=== PATIENT | female | born 1930 | race Caucasian/White ===

== ENCOUNTER 2019-06-25 16:12 | Inpatient (IN) | payer MEDICARE, OTHER ==
[~2019-06-25] VITALS: Ht 162.6 cm; Wt 87.7 kg
[~2019-06-25 16:12] MED LIST: COL100C PO; DILT360C18 PO; HYDR-3964 PO; SYN0.088T PO
[2019-06-25] MEDS ORDERED: fentaNYL/PF 50MCG/1 ML 2ML syringe IV ONE ×4 (16:35→21:00)
[2019-06-25] MEDS ORDERED: oxyCODONE IR 5mg (immed. release) tablet PO ONE (17:05)
--- NOTE | 2019-06-25 17:07 | NUR ---
REFUSED IV FOR MED, ADVISED. NEW PO ORDERS RECEIVED.
[2019-06-25] MEDS ORDERED: LEVO100T PO (19:49)
[2019-06-25] MEDS ORDERED: LISI-600 PO (19:49)
[2019-06-25] MEDS ORDERED: CYAN-51 PO (19:51)
[2019-06-25] MEDS ORDERED: ACET-2971 PO (19:54)
[2019-06-25] MEDS ORDERED: oxyCODONE/APAP 10/325mg tablet PO ONE (20:55)
[2019-06-25] MEDS ORDERED: magnesium 4gm in 100ml NS 100 ML IV PRN (21:30)
[2019-06-25] MEDS ORDERED: potassium Cl 20 mEq SR tablet PO PRN ×2 (21:30)
[2019-06-25] MEDS ORDERED: magnesium Cl slow-release 64mg tablet PO PRN (21:30)
[2019-06-25] MEDS ORDERED: morphine 2 MG/ML inj. syringe IV PRN ×2 (21:30)
[2019-06-25] MEDS ORDERED: potassium CL 10mEq/100ml bag 100 ML IV PRN ×2 (21:30)
[2019-06-25] MEDS ORDERED: magnesium 2GM in 50ml NS 50 ML IV PRN (21:30)
[2019-06-25] MEDS ORDERED: acetaminophen 325mg tablet PO PRN (21:30)
[2019-06-25] MEDS: normal saline 1000ml 1,000 ML IV SCH (22:53)
[2019-06-25] MEDS: ondansetron/PF 4mg/2ml inj IV PRN (23:44)
[2019-06-25 23:55] VITALS: BP 199/105
[2019-06-26 00:22] VITALS: BP 144/75
[2019-06-26] MEDS: levoTHYROXINE 100mcg tablet PO SCH ×2 (00:25→07:22)
[2019-06-26] MEDS: diltiazem CD 180mg cap (once-daily) PO SCH ×2 (00:45→21:13)
[2019-06-26] MEDS ORDERED: acetaminophen 325mg tablet PO PRN (00:45)
[2019-06-26] MEDS: lisinopril 10 MG tablet PO SCH ×2 (00:58→21:12)
[2019-06-26] MEDS: HYDROcodone/acetaminophen 5mg/325mg tablet PO PRN ×3 (00:59→10:47)
[2019-06-26 06:00] VITALS: BP 115/55
--- NOTE | 2019-06-26 06:30 | NUR ---
Problems reprioritized. Patient report given, questions answered & plan of care reviewed with POONAM Angela.
--- NOTE | 2019-06-26 06:35 | NUR ---
Patient in room [facility]TH[facility] 4015. I have received report from Hollie LEVIN and had the opportunity to ask questions and assume patient care.
[2019-06-26 06:39] LABS: BASOPHILS % (AUTO) 0.3 % (0-1); EOSINOPHILS % (AUTO) 0.1 % (0-6); HEMATOCRIT 31.9 % (35.0-45.0); HEMOGLOBIN 10.9 g/dl (12.0-16.0); LYMPHOCYTES # (AUTO) 1.2 X10'3 (1.1-4.8); LYMPHOCYTES % (AUTO) 12.8 % (21-51); MEAN CORPUSCULAR HEMOGLOBIN 30.1 PG (27.0-31.0); MEAN CORPUSCULAR HGB CONC 34.1 g/dL (33.0-36.5); MEAN CORPUSCULAR VOLUME 88.3 FL (78-98); MEAN PLATELET VOLUME 7.5 FL (7.4-10.4); MONOCYTES # (AUTO) 1.2 X10'3 (0-0.9); MONOCYTES % (AUTO) 12.6 % (2-12); NEUTROPHILS # (AUTO) 6.9 X10'3 (1.8-7.7); NEUTROPHILS % (AUTO) 74.2 % (42-75); PLATELET COUNT 263 X10'3 (140-440); RED BLOOD COUNT 3.62 X10'6 (4.20-5.60); RED CELL DISTRIBUTION WIDTH 14.6 % (11.5-14.5); WHITE BLOOD COUNT 9.4 X10'3 (4.5-11.0)
[2019-06-26 06:49] LABS: ALBUMIN 3.2 G/DL (3.4-5.0); ANION GAP 8 (8-16); BLOOD UREA NITROGEN 15 MG/DL (7-18); BUN/CREATININE RATIO 16.5 (6.6-38.0); CALCIUM 8.6 MG/DL (8.5-10.1); CHLORIDE 103 MMOL/L (99-107); CREATININE 0.91 MG/DL (0.40-0.90); GLUCOSE 121 MG/DL (70-104); POTASSIUM 3.9 MMOL/L (3.5-5.1); SODIUM 138 MMOL/L (135-145); TOTAL CARBON DIOXIDE 26.9 MMOL/L (24-32); eGFR 58 ML/MIN
[2019-06-26] MEDS: K and/or MAG REPLACEMENT MC SCH ×2 (07:12→20:00)
--- NOTE | 2019-06-26 08:53 | NUR ---
using julia kadie. Addendum: 06/26/19 at 0857 by Julio César Burgos RN Amended: Links added.
[2019-06-26 10:00] VITALS: BP 122/59
[2019-06-26 10:10] LABS: PARTIAL THROMBOPLASTIN TIME 25 SECONDS (22-32)
--- NOTE | 2019-06-26 10:57 | NUR ---
Julio César [id number] Re: Alecia Horton Can Pt have [place] for pain?
[2019-06-26] MEDS: HYDROcodone/acetaminophen 10/325mg tab PO PRN ×2 (14:35→21:12)
--- NOTE | 2019-06-26 17:01 | NUR ---
Julio César [id number] Re: Alecia Horton Pt c/o 04/17 pain in right shoulder. Has been on [place] 10. Can we get Ultram for break through pain?
[2019-06-26 18:00] VITALS: BP 156/66
--- NOTE | 2019-06-26 18:13 | NUR ---
Problems reprioritized. Patient report given, questions answered & plan of care reviewed with Mae LEVIN.
[2019-06-26] MEDS: traMADol 50MG tablet PO PRN (19:17)
[2019-06-26] MEDS: ondansetron/PF 4mg/2ml inj IV PRN (19:17)
[2019-06-26 21:01] VITALS: BP 133/72
[2019-06-26] MEDS: cyanocobalamin 500mcg tablet PO SCH (21:12)
[2019-06-26 22:00] VITALS: BP 133/72
[2019-06-27] VITALS (21 sets, daily range): BP systolic 104–147; BP diastolic 45–82
[2019-06-27] MEDS: normal saline 1000ml 1,000 ML IV SCH (00:14)
--- NOTE | 2019-06-27 00:30 | NUR ---
Patient pure wick showed only less than 100ml and dry flow dry. Patient denies any pain or discomfort to her abd. Bladder scan patient showed >1000ml.
--- NOTE | 2019-06-27 00:40 | NUR ---
Dr. Perez notified of patient's urine retention. Orders to straight cath now. and x1 more for urine >400ml. If patient continues to retain after straight cath x2. Then to place FC. @0100. Patient straight cath under sterile procedure. Patient tolerated well. Return 1000ml clear yellow urine.
--- NOTE | 2019-06-27 05:28 | NUR ---
Bladder scan this morning. Patient has 160ml.
[2019-06-27] MEDS: traMADol 50MG tablet PO PRN (05:30)
--- NOTE | 2019-06-27 06:05 | NUR ---
Patient in room [facility]TH[facility] 4015. I have received report from Mae LEVIN and had the opportunity to ask questions and assume patient care.
--- NOTE | 2019-06-27 06:31 | NUR ---
Problems reprioritized. Patient report given, questions answered & plan of care reviewed with Marita LEVIN.
[2019-06-27 06:37] LABS: PARTIAL THROMBOPLASTIN TIME 26 SECONDS (22-32)
[2019-06-27 06:38] LABS: BASOPHILS # (AUTO) 0.1 X10'3 (0-0.2); BASOPHILS % (AUTO) 0.8 % (0-1); EOSINOPHILS # (AUTO) 0.3 X10'3 (0-0.9); EOSINOPHILS % (AUTO) 3.4 % (0-6); HEMATOCRIT 30.1 % (35.0-45.0); HEMOGLOBIN 10.5 g/dl (12.0-16.0); LYMPHOCYTES # (AUTO) 1.3 X10'3 (1.1-4.8); LYMPHOCYTES % (AUTO) 16.1 % (21-51); MEAN CORPUSCULAR HEMOGLOBIN 30.5 PG (27.0-31.0); MEAN CORPUSCULAR HGB CONC 34.9 g/dL (33.0-36.5); MEAN CORPUSCULAR VOLUME 87.3 FL (78-98); MEAN PLATELET VOLUME 7.7 FL (7.4-10.4); MONOCYTES # (AUTO) 1.2 X10'3 (0-0.9); MONOCYTES % (AUTO) 15.1 % (2-12); NEUTROPHILS # (AUTO) 5.1 X10'3 (1.8-7.7); NEUTROPHILS % (AUTO) 64.6 % (42-75); PLATELET COUNT 228 X10'3 (140-440); RED BLOOD COUNT 3.45 X10'6 (4.20-5.60); RED CELL DISTRIBUTION WIDTH 14.8 % (11.5-14.5); WHITE BLOOD COUNT 7.9 X10'3 (4.5-11.0)
[2019-06-27 06:42] LABS: ALBUMIN 2.9 G/DL (3.4-5.0); ANION GAP 7 (8-16); BLOOD UREA NITROGEN 15 MG/DL (7-18); BUN/CREATININE RATIO 16.9 (6.6-38.0); CALCIUM 8.4 MG/DL (8.5-10.1); CHLORIDE 102 MMOL/L (99-107); CREATININE 0.89 MG/DL (0.40-0.90); GLUCOSE 105 MG/DL (70-104); POTASSIUM 3.9 MMOL/L (3.5-5.1); SODIUM 137 MMOL/L (135-145); TOTAL CARBON DIOXIDE 28.5 MMOL/L (24-32); eGFR 60 ML/MIN
[2019-06-27] MEDS: K and/or MAG REPLACEMENT MC SCH ×2 (08:00→20:00)
[2019-06-27] MEDS: levoTHYROXINE 100mcg tablet PO SCH (10:31)
[2019-06-27] MEDS: HYDROcodone/acetaminophen 10/325mg tab PO PRN (10:32)
[2019-06-27] MEDS ORDERED: fentaNYL/PF 50MCG/1 ML 2ML syringe ONE (11:06)
[2019-06-27] MEDS ORDERED: midazolam 2 mg/2 ml injection ONE (11:06)
[2019-06-27] MEDS ORDERED: LIDOcaine 2% (20mg/ml) 5ml vial ONE (11:08)
[2019-06-27] MEDS ORDERED: propofol inj 20 ML IV ONE (11:08)
[2019-06-27] MEDS ORDERED: dexamethasone sod phosphate 4mg/ml inj. ONE (11:09)
[2019-06-27] MEDS ORDERED: ROPIVAcaine 0.5% (5mg/ml) 30ml vial ONE ×2 (11:09→12:28)
[2019-06-27] MEDS ORDERED: sevoflurane 250ml liquid IH ONE (11:10)
[2019-06-27] MEDS ORDERED: phenylephrine 10mg/ml inj. ONE (11:10)
[2019-06-27] MEDS ORDERED: ondansetron/PF 4mg/2ml inj ONE (11:52)
[2019-06-27] MEDS ORDERED: ringers solution, lacted 1,000 ML IV SCH (12:16)
[2019-06-27] MEDS ORDERED: hydrALAZINE 20mg/ml inj. IV PRN (12:20)
[2019-06-27] MEDS ORDERED: labetalol 20mg/4ml (5mg/ml) syringe IV PRN (12:20)
[2019-06-27] MEDS ORDERED: morphine 4 MG/ML inj SYRINge IV PRN ×2 (12:20)
[2019-06-27] MEDS ORDERED: ondansetron/PF 4mg/2ml inj IV PRN (12:20)
[2019-06-27] MEDS ORDERED: fentaNYL/PF 50MCG/1 ML 2ML syringe IV PRN ×2 (12:20)
[2019-06-27] MEDS ORDERED: labetalol 20mg/4ml (5mg/ml) syringe IV ONE (13:14)
[2019-06-27] MEDS ORDERED: potassium cl 20mEq in 1/2 NS 1,000 ML IV SCH (13:27)
--- NOTE | 2019-06-27 13:28 | NUR ---
Received from OR via BED, accompanied by Anesthesiologist DR PALACIOS and report given by Anesthesiologist. PT DROWSY, DENIES PAIN, RIGHT SHOULDER W/DRSG, WRAP, ICE PACK, SHOULDER SLING, CDI. Addendum: 06/27/19 at 1403 by Amy Kee RN Amended: Links added.
[2019-06-27] MEDS: ROPIVAcaine 0.2%/PF PUMP/bolus 550 ML INTERSCALE SCH (14:22)
--- NOTE | 2019-06-27 14:48 | NUR ---
PT INCONTINENT OF URINE AND SMALL AMT OF BROWN STOOL, CLEANED, SKIN CARE PROVIDED, LINEN CHANGE. Report called to receiving nurse. Transferred via BED, UPPER DENTURES PLACED IN PTS MOUTH, NO OTHER Belongings. RECEIVING RN AT BEDSIDE TO RECEIVE PT, BLL, CALL LIGHT GIVEN, SIDE RAILS UP X 2. Special Issues communicated to receiving nurse. YES. Addendum: 06/27/19 at 1509 by Amy Kee RN Amended: Links added.
[2019-06-27] MEDS ORDERED: CLINDAMYCIN/D5W 900mg/50ml 50 ML IV ONE (15:00)
[2019-06-27] MEDS: clindamycin 600mg/D5W 50ml 50 ML IV SCH ×2 (16:44→20:21)
--- NOTE | 2019-06-27 17:04 | NUR ---
Bladder scanned patient: 225ml
--- NOTE | 2019-06-27 18:44 | NUR ---
Patient in room [facility]TH[facility] 4015. I have received report from Marita LEVIN and had the opportunity to ask questions and assume patient care.
[2019-06-27] MEDS ORDERED: VANCOMYCIN 1gm/H2O 200ml PB 200 ML IV SCH (20:00)
[2019-06-27] MEDS: cyanocobalamin 500mcg tablet PO SCH (20:20)
[2019-06-27] MEDS: lisinopril 10 MG tablet PO SCH (20:20)
[2019-06-27] MEDS: diltiazem CD 180mg cap (once-daily) PO SCH (20:21)
[2019-06-28] MEDS: ROPIVAcaine 0.2% (10 MG/5 ML) BOLUS INJECTION INTERSCALE PRN ×2 (01:00→04:54)
[2019-06-28] MEDS: ROPIVAcaine 0.2%/PF PUMP/bolus 550 ML INTERSCALE SCH ×2 (01:00→04:54)
[2019-06-28] MEDS: traMADol 50MG tablet PO PRN (01:06)
[2019-06-28 02:00] VITALS: BP 156/75
[2019-06-28 06:00] VITALS: BP 152/75
--- NOTE | 2019-06-28 06:05 | NUR ---
Patient in room [facility]TH[facility] 4015. I have received report from Maddie LEVIN and had the opportunity to ask questions and assume patient care.
[2019-06-28 06:35] LABS: ALBUMIN 2.7 G/DL (3.4-5.0); ANION GAP 7 (8-16); BASOPHILS % (AUTO) 0.2 % (0-1); BLOOD UREA NITROGEN 15 MG/DL (7-18); BUN/CREATININE RATIO 18.5 (6.6-38.0); CHLORIDE 101 MMOL/L (99-107); CREATININE 0.81 MG/DL (0.40-0.90); EOSINOPHILS % (AUTO) 0 % (0-6); GLUCOSE 140 MG/DL (70-104); HEMATOCRIT 27.6 % (35.0-45.0); HEMOGLOBIN 9.5 g/dl (12.0-16.0); LYMPHOCYTES # (AUTO) 0.8 X10'3 (1.1-4.8); LYMPHOCYTES % (AUTO) 6.6 % (21-51); MAGNESIUM 1.8 MG/DL (1.5-2.4); MEAN CORPUSCULAR HEMOGLOBIN 30.4 PG (27.0-31.0); MEAN CORPUSCULAR HGB CONC 34.4 g/dL (33.0-36.5); MEAN CORPUSCULAR VOLUME 88.4 FL (78-98); MEAN PLATELET VOLUME 7.9 FL (7.4-10.4); MONOCYTES # (AUTO) 1.1 X10'3 (0-0.9); MONOCYTES % (AUTO) 9.6 % (2-12); NEUTROPHILS # (AUTO) 9.9 X10'3 (1.8-7.7); NEUTROPHILS % (AUTO) 83.6 % (42-75); PLATELET COUNT 228 X10'3 (140-440); POTASSIUM 5.4 MMOL/L (3.5-5.1); RED BLOOD COUNT 3.13 X10'6 (4.20-5.60); RED CELL DISTRIBUTION WIDTH 14.5 % (11.5-14.5); SODIUM 132 MMOL/L (135-145); TOTAL CARBON DIOXIDE 23.9 MMOL/L (24-32); WHITE BLOOD COUNT 11.8 X10'3 (4.5-11.0); eGFR 67 ML/MIN
--- NOTE | 2019-06-28 06:41 | NUR ---
REPORT TO REECE LEVIN
[2019-06-28] MEDS ORDERED: normal saline 1000ml 1,000 ML IV SCH (07:50)
[2019-06-28] MEDS: HYDROcodone/acetaminophen 10/325mg tab PO PRN ×2 (07:58→20:32)
[2019-06-28] MEDS: aspirin 325mg tablet PO SCH (07:58)
[2019-06-28] MEDS: K and/or MAG REPLACEMENT MC SCH ×2 (08:00→20:00)
[2019-06-28 10:00] VITALS: BP 176/84
[2019-06-28] MEDS: levoTHYROXINE 100mcg tablet PO SCH (11:58)
[2019-06-28 14:00] VITALS: BP 130/79
--- NOTE | 2019-06-28 16:15 | NUR ---
Pt admit with right humeral fracture now s/p right reverse TSA. Pt on regular diet documented with 50% PO intake likely closely meeting nutrient needs for geriatric age. Pt seen at bedside provided with written and verbal protein education as well as alternative regular menu to provide additional options. Pt agrees to cottage cheese with pineapple at dinner and reports dislike to rice, fish, cooked carrots, cream of wheat, and oatmeal, d/w dietary. Pt endorses a good appetite and denies difficulty chewing/swallowing. Pt agrees to chop meat TID d/t right arm being in a sling, d/w dietary. Pt reports difficulty having BM after three days and requests prunes with dinner tonight, d/w dietary. RD contact information provided. Will continue to follow. Addendum: 06/28/19 at [address] Amended: Links added.
[2019-06-28] MEDS ORDERED: LORazepam 0.5 MG tablet PO PRN (17:20)
[2019-06-28 18:00] VITALS: BP 135/56
[2019-06-28] MEDS: diltiazem CD 180mg cap (once-daily) PO SCH (20:28)
[2019-06-28] MEDS: cyanocobalamin 500mcg tablet PO SCH (20:29)
[2019-06-28] MEDS: lisinopril 10 MG tablet PO SCH (20:31)
[2019-06-28 22:00] VITALS: BP 139/40
[2019-06-29] MEDS: HYDROcodone/acetaminophen 10/325mg tab PO PRN (05:24)
[2019-06-29] MEDS: levoTHYROXINE 100mcg tablet PO SCH (05:30)
--- NOTE | 2019-06-29 05:32 | NUR ---
patient medicated with norco for R shoulder pain and requested synthroid, med. given per request as patient normally takes it at 0400.
[2019-06-29 06:00] VITALS: BP 106/57
[2019-06-29 06:18] LABS: BASOPHILS # (AUTO) 0.1 X10'3 (0-0.2); BASOPHILS % (AUTO) 0.4 % (0-1); EOSINOPHILS # (AUTO) 0.1 X10'3 (0-0.9); EOSINOPHILS % (AUTO) 0.6 % (0-6); HEMATOCRIT 28.6 % (35.0-45.0); HEMOGLOBIN 10.1 g/dl (12.0-16.0); LYMPHOCYTES # (AUTO) 1.8 X10'3 (1.1-4.8); LYMPHOCYTES % (AUTO) 14.7 % (21-51); MEAN CORPUSCULAR HEMOGLOBIN 30.7 PG (27.0-31.0); MEAN CORPUSCULAR HGB CONC 35.1 g/dL (33.0-36.5); MEAN CORPUSCULAR VOLUME 87.3 FL (78-98); MEAN PLATELET VOLUME 7.9 FL (7.4-10.4); MONOCYTES # (AUTO) 1.5 X10'3 (0-0.9); MONOCYTES % (AUTO) 12.3 % (2-12); NEUTROPHILS # (AUTO) 8.7 X10'3 (1.8-7.7); PLATELET COUNT 283 X10'3 (140-440); RED BLOOD COUNT 3.28 X10'6 (4.20-5.60); RED CELL DISTRIBUTION WIDTH 14.8 % (11.5-14.5); WHITE BLOOD COUNT 12.1 X10'3 (4.5-11.0)
[2019-06-29 06:26] LABS: ALBUMIN 2.9 G/DL (3.4-5.0); ANION GAP 9 (8-16); BLOOD UREA NITROGEN 14 MG/DL (7-18); BUN/CREATININE RATIO 15.6 (6.6-38.0); CALCIUM 8.4 MG/DL (8.5-10.1); CHLORIDE 102 MMOL/L (99-107); GLUCOSE 111 MG/DL (70-104); MAGNESIUM 1.9 MG/DL (1.5-2.4); POTASSIUM 3.9 MMOL/L (3.5-5.1); SODIUM 137 MMOL/L (135-145); TOTAL CARBON DIOXIDE 26.4 MMOL/L (24-32); eGFR 59 ML/MIN
--- NOTE | 2019-06-29 06:51 | NUR ---
VERBAL REPORT GIVEN TO GOPAL LEVIN
[2019-06-29] MEDS: aspirin 325mg tablet PO SCH (08:07)
[2019-06-29 10:45] VITALS: BP 95/68
== END 2019-06-29 11:05 | DRG 483 ==
LOC: ER 16:12 → ED HOLD 21:38 → ORTHO 4S 23:30
PROVIDERS: ADMIT Internal Medicine; ATTEND Family Medicine
PROC: 0XJ2XZZ Inspection of Right Shoulder Region, External Approach (ICD-10-PCS; 2019-06-25)
PROC: 3E0T3BZ Introduction of Anesthetic Agent into Peripheral Nerves and Plexi, Percutaneous Approach (ICD-10-PCS; 2019-06-27)
PROC: 0RRJ00Z Replacement of Right Shoulder Joint with Reverse Ball and Socket Synthetic Substitute, Open Approach (ICD-10-PCS; principal; 2019-06-27 11:10)
DX: S42.241A 4-part fracture of surgical neck of right humerus, initial encounter for closed fracture (principal); W01.0XXA Fall on same level from slipping, tripping and stumbling without subsequent striking against object, initial encounter; E03.9 Hypothyroidism, unspecified; S43.004A Unspecified dislocation of right shoulder joint, initial encounter; S06.2X0A Diffuse traumatic brain injury without loss of consciousness, initial encounter; G89.29 Other chronic pain; D64.9 Anemia, unspecified; Z60.2 Problems related to living alone; E78.00 Pure hypercholesterolemia, unspecified; I10 Essential (primary) hypertension; Z86.73 Personal history of transient ischemic attack (TIA), and cerebral infarction without residual deficits; Z87.891 Personal history of nicotine dependence; Z90.49 Acquired absence of other specified parts of digestive tract; Z90.710 Acquired absence of both cervix and uterus; Y93.89 Activity, other specified; Y92.512 Supermarket, store or market as the place of occurrence of the external cause; Y99.8 Other external cause status; Z88.1 Allergy status to other antibiotic agents; Z88.5 Allergy status to narcotic agent; Z79.899 Other long term (current) drug therapy; R45.1 Restlessness and agitation
CPT/HCPCS: 23605; 36415; 70450; 71045; 72125; 73020; 73030; 73200; 80048; 83735; 85025; 85610; 85730; 87081; 93005; 96374; 96375; 97110; 97161; 97530; 99285; A4565; A4618; A7000; C1776; G0378; J1100; J2001; J2250; J2270; J2370; J2405; J2704; J2795; J3010; J3370; J3480; J3490; J7030; J7120

== ENCOUNTER 2019-07-04 19:48 | Emergency (ER) | payer MEDICARE, OTHER ==
[~2019-07-04] VITALS: Ht 162.6 cm; Wt 87.7 kg
[~2019-07-04 19:48] MED LIST changes: +ACET-2971 PO; -COL100C PO; +CYAN-51 PO; -HYDR-3964 PO; +LEVO100T PO; +LISI-600 PO; -SYN0.088T PO
[2019-07-04] MEDS ORDERED: normal saline 1000ML IV soln IVB ONE (20:35)
[2019-07-04] MEDS ORDERED: levoFLOXACIN-Levaquin 500mg/D5 100 ML IV ONE (20:35)
[2019-07-04 20:44] LABS: BASOPHILS % (AUTO) 0.1 % (0-1); EOSINOPHILS # (AUTO) 0.4 X10'3 (0-0.9); EOSINOPHILS % (AUTO) 3.2 % (0-6); HEMATOCRIT 30.8 % (35.0-45.0); HEMOGLOBIN 10.5 g/dl (12.0-16.0); LYMPHOCYTES # (AUTO) 0.4 X10'3 (1.1-4.8); LYMPHOCYTES % (AUTO) 3.5 % (21-51); MEAN CORPUSCULAR HGB CONC 34.2 g/dL (33.0-36.5); MEAN CORPUSCULAR VOLUME 87.8 FL (78-98); MEAN PLATELET VOLUME 6.9 FL (7.4-10.4); MONOCYTES # (AUTO) 0.7 X10'3 (0-0.9); MONOCYTES % (AUTO) 6.3 % (2-12); NEUTROPHILS # (AUTO) 10.3 X10'3 (1.8-7.7); NEUTROPHILS % (AUTO) 86.9 % (42-75); PLATELET COUNT 367 X10'3 (140-440); RED BLOOD COUNT 3.51 X10'6 (4.20-5.60); RED CELL DISTRIBUTION WIDTH 15.5 % (11.5-14.5); WHITE BLOOD COUNT 11.8 X10'3 (4.5-11.0)
--- NOTE | 2019-07-04 20:46 | NUR ---
Patient uncooperative to exam, refuses to answer questions
[2019-07-04 20:51] LABS: PARTIAL THROMBOPLASTIN TIME 25 SECONDS (22-32)
[2019-07-04] MEDS ORDERED: LEVO500T2 PO (21:38)
[2019-07-04 21:41] LABS: ALANINE AMINOTRANSFERASE 32 U/L (12-78); ALBUMIN 3.1 G/DL (3.4-5.0); ALBUMIN/GLOBULIN RATIO 0.8 (1.1-1.5); ALKALINE PHOSPHATASE 197 IU/L (46-116); ANION GAP 6 (8-16); ASPARTATE AMINO TRANSFERASE 35 U/L (10-37); BILIRUBIN,TOTAL 0.9 MG/DL (0.1-1.0); BLOOD UREA NITROGEN 14 MG/DL (7-18); BUN/CREATININE RATIO 14.7 (6.6-38.0); CALCIUM 8.6 MG/DL (8.5-10.1); CHLORIDE 100 MMOL/L (99-107); CREATININE 0.95 MG/DL (0.40-0.90); GLUCOSE 109 MG/DL (70-104); MAGNESIUM 1.8 MG/DL (1.5-2.4); POTASSIUM 3.7 MMOL/L (3.5-5.1); SODIUM 134 MMOL/L (135-145); TOTAL CARBON DIOXIDE 28.2 MMOL/L (24-32); TOTAL PROTEIN 6.8 G/DL (6.4-8.2); eGFR 56 ML/MIN
[2019-07-04] MEDS ORDERED: acetaminophen 325mg tablet PO ONE (21:50)
[2019-07-04] MEDS ORDERED: BACDS PO (21:55)
[2019-07-04] MEDS ORDERED: sulfamethoxazole/trimethoprim DS (800/160mg) tablet PO ONE (21:55)
[2019-07-04] MEDS ORDERED: normal saline 1000ml 1,000 ML IV ONE (23:20)
[2019-07-04 23:28] LABS: CLARITY,URINE CLEAR (Clear); COLOR,URINE YELLOW (Yellow); GLUCOSE, URINE NEGATIVE (Neg); KETONES,URINE 15 mg/dl (Neg); LEUKOCYTE ESTERASE ,URINE TRACE (Neg); NITRITES, URINE NEGATIVE (Neg); OCCULT BLOOD,URINE NEGATIVE (Neg); PROTEIN,URINE TRACE mg/dl (Neg); UROBILINOGEN,URINE >=8.0 E.U/dL (0.2-1.0)
[2019-07-04 23:31] LABS: UA COLLECTION TYPE STRAIGHT CATH
[2019-07-04 23:32] LABS: BACTERIA,URINE FEW /HPF (Neg); RBC,URINE NONE SEEN /HPF (0-2); SQUAMOUS EPITHELIAL CELL,UR FEW /LPF (FEW)
--- NOTE | 2019-07-05 02:12 | NUR ---
CALLED [facility] FOR TRANSPORT TO [facility] ([facility])[3] ETA 1 HOUR
[2019-07-05 04:15] VITALS: BP 127/60
== END 2019-07-05 03:39 | disposition home or self-care (01) ==
LOC: ER 19:49
DX: S05.10XA Contusion of eyeball and orbital tissues, unspecified eye, initial encounter (principal); N39.0 Urinary tract infection, site not specified; E78.00 Pure hypercholesterolemia, unspecified; I10 Essential (primary) hypertension; G89.29 Other chronic pain; Z90.49 Acquired absence of other specified parts of digestive tract; Z90.710 Acquired absence of both cervix and uterus; Z87.891 Personal history of nicotine dependence; Z88.1 Allergy status to other antibiotic agents; Z79.899 Other long term (current) drug therapy; X58.XXXA Exposure to other specified factors, initial encounter; Y93.89 Activity, other specified; Y92.89 Other specified places as the place of occurrence of the external cause; Y99.8 Other external cause status
CPT/HCPCS: 36415; 71045; 80053; 81001; 83605; 83735; 84145; 85025; 85610; 85730; 87040; 87088; 87502; 87503; 93005; 96365; 99284; J1956; J7030